=== PATIENT | female | born 1970 ===

== ENCOUNTER → 2022-11-23 | Outpatient (REF) | payer BC | LOC: M WUC 19:19 | PROVIDERS: ATTEND Student in an Organized Health Care Education/Training Program | DX: R30.0 Dysuria (principal) ==

== ENCOUNTER → 2023-03-06 | Outpatient (REF) | payer BC | LOC: M WUC 19:34 | PROVIDERS: ATTEND Physician Assistant | DX: R30.0 Dysuria (principal) ==